=== PATIENT | male | born 1945 | race Caucasian/White ===

== ENCOUNTER 2016-07-14 08:06 | Outpatient (CLI) | payer MEDICARE, OTHER ==
[2016-07-14 08:56] LABS: eGFR (African) > 60; eGFR (Non-African) > 60
== END 2016-07-14 08:07 ==
LOC: LAB 08:06
PROVIDERS: ATTEND Family Medicine
DX: E78.5 Hyperlipidemia, unspecified (principal)
CPT/HCPCS: 36415; 80053; 80061

== ENCOUNTER 2016-07-28 09:38 | Outpatient (CLI) | payer MEDICARE, OTHER ==
[2016-07-28 09:53] LABS: BASOPHILS % 0.2 (0.0-1.5); EOSINOPHILS % 3.5 % (0.0-6.8); LYMPHOCYTES # 1.4 # k/uL (0.6-4.0); MEAN CORPUSCULAR HEMOGLOBIN 28.9 pg (28.0-34.0); MONOCYTES # 0.5 # k/uL (0.0-0.9); MONOCYTES % 7.1 % (0.0-11.0); NEUTROPHILS # 4.4 # k/uL (1.4-7.7)
--- NOTE | 2016-07-28 17:26 | Diagnostic Imaging Report ---
[facility] [address] [facility].[address] [id number] Report Submission Date: Jul 28, 2016 3:13:43 PM CDT Patient Study Name: HERNAN OVALLE Date: Jul 28, 2016 10:08:01 AM CDT Modality Type: CR Gender: M Description: CHEST : 43 Institution: [facility] Physician: CESAR PISANO - OP Chest PA and lateral views Clinical history: Dyspnea on exertion Mild cardiomegaly with atherosclerotic thoracic aorta. No acute infiltrate or pleural effusion. Bilateral shoulder prostheses . Moderate thoracic spondylosis. Impression: No active pulmonary pathology Electronically signed on Jul 28, 2016 3:13:43 PM CDT by: Cesar BARKLEY
== END 2016-07-28 09:40 ==
LOC: LAB 09:38
PROVIDERS: ATTEND Family Medicine
DX: R06.02 Shortness of breath (principal)
CPT/HCPCS: 36415; 71020; 85025; 85379

== ENCOUNTER 2017-04-07 07:02 | Outpatient (CLI) | payer MEDICARE, OTHER ==
[2017-04-07 07:35] LABS: BASOPHILS % 0.5 (0.0-1.5); EOSINOPHILS % 3.2 % (0.0-6.8); MEAN CORPUSCULAR VOLUME 90.3 fl (80.0-100.0); MONOCYTES % 6.6 % (0.0-11.0); NEUTROPHILS # 5.4 # k/uL (1.4-7.7)
[2017-04-07 08:15] LABS: eGFR (African) > 60; eGFR (Non-African) > 60
== END 2017-04-07 07:03 ==
LOC: LAB 07:02
PROVIDERS: ATTEND Internal Medicine Cardiovascular Disease
DX: I10 Essential (primary) hypertension (principal); I25.10 Atherosclerotic heart disease of native coronary artery without angina pectoris; R00.2 Palpitations; R06.02 Shortness of breath; E78.00 Pure hypercholesterolemia, unspecified
CPT/HCPCS: 36415; 80053; 80061; 84443; 85025

== ENCOUNTER 2019-03-07 08:46 | Outpatient (CLI) | payer MEDICARE, OTHER ==
[2019-03-07 09:20] LABS: A1C 5.6 % (<5.7)
[2019-03-07 10:03] LABS: HDL 41 mg/dL (>40); eGFR (Non-African) > 60
[2019-03-07 10:07] LABS: BASOPHILS % 0.3 % (0.0-1.5); NEUTROPHILS # 4.9 # k/uL (1.4-7.7); OVALOCYTES 1+ (NEGATIVE); SEGMENTED NEUTROPHILS % 76 % (39-79)
== END 2019-03-07 08:51 ==
LOC: LAB 08:46
PROVIDERS: ATTEND Family Medicine
DX: I25.810 Atherosclerosis of coronary artery bypass graft(s) without angina pectoris (principal); R73.9 Hyperglycemia, unspecified; R53.83 Other fatigue
CPT/HCPCS: 36415; 80053; 80061; 83036; 84439; 84443; 84481; 85025